=== PATIENT | male | born 1985 | race Two or more races ===

== ENCOUNTER 2024-12-28 20:28 | Emergency (ER) | payer MEDICAID, SELFPAY ==
[2024-12-28 20:31] VITALS: BP 162/80; PULSE 111; RESP 18; TEMP 36.6; O2SAT 99; BMI 33.9
--- NOTE | 2024-12-28 23:00 | XR_ITS ---
Examination: CT maxillofacial, without intravenous contrast. 2-D sagittal reconstructions. 3-D reconstructions. Date and time of exam:December 29, 2024, 0113 hours INDICATIONS: Injury to the face today, nose pain CTDI: vol (mGy):25.5 DLP: (mGycm):550 Technique: Multiple axial images of maxillofacial region, 3.0 mm slice thickness. 2-D sagittal and coronal reconstructions. 3-D reconstructions. Low dose protocols were performed. One or more of the following dose reduction techniques were used; automated exposure control, adjustment of the mA and/or KV according to patient size, use of iterative reconstruction technique. Findings: Frontal bones intact Orbit rims intact. Mildly displaced right nasal bone fracture image 81 No depression zygomatic arches. Maxilla and the mandible is intact IMPRESSION: Right nasal bone fracture.
--- NOTE | 2024-12-28 23:01 | EDNOTE_ITS ---
ED Head Injury RME/HPI General Chief complaint: Head Injury Stated complaint: NOSE INJURY Time Seen by Provider: 12/28/24 21:48 Arrival date/time: 12/28/24 20:28 RME / HPI RME / HPI Narrative: 39-year-old male presents to the ED with a complaint of nose pain and injury secondary to an injury he sustained at home at about 6 PM tonight when a ladder that was up against the building fell onto him landing on his face and nose. He had a bloody nose afterwards. Related Data Previous Rx's ?Medication ?Instructions ?Recorded amoxicillin 875 mg-potassium 1 tab PO BID Nasal bone f racture 12/29/24 clavulanate 125 mg tablet with possible intranasal lac 7 days #14 tabs meloxicam 15 mg tablet 15 mg PO QDAY PRN pain #10 t abs 12/29/24 Allergies Allergy/AdvReac Type Severity Reaction Status Date / Time No Known Allergies Allergy Verified 12/28/24 20:36 Review of Systems Review of Systems Systems Reviewed: All systems reviewed, normal except as documented Past Medical History Social History SMOKING STATUS: Current some day smoker ED Exam Narrative Physical exam: A&O, afebrile and non-toxic appearing 39-year-old male with obvious nasal deformity, swelling and evidence of recent epistaxis. No acute distress. Pupils are PERRL, EOMs intact. No nystagmus noted. Cranial nerves II through XII are grossly intact. TMs are without erythema, right nares patent, left nares obscured with deformity and severe edema. Pharynx without erythema. No tenderness to the bilateral orbits. Positive nasal bridge tenderness as well as tenderness to the cartilage area. No current bleeding is noted. Lung are clear, RRR, Abdomen is non-distended. Moves all extremities well. Course Course Course Narrative: Patient was given hydrocodone 7.[address] facial bones reveals acute minimally displaced fracture of the right nasal bone/right frontal process of the maxilla with adjacent soft tissue swelling. Maxillary sinus and orbital sprague are intact. No evidence of intraorbital hematoma, globe injury or radiodense foreign body. Zygomatic arches and mandible are intact. Quality Measures none Orders Category Date Time Status CT facial bones wo con Stat Exams 12/28/24 23:00 Taken HYDROcodone*/APAP 7.5/325 [[place] 7.5/325] Med 12/28/24 23:00 Discontinued 1 tab PO X1 ONE Head Injury MDM Narrative MDM Narrative:: Symptoms, exam and diagnostic studies are consistent with: Nasal bone fracture with displacement and soft tissue swelling. Patient was discharged home in stable condition. Patient/family advised to follow-up with their PCP in 24-48 hours. Encouraged to return to the ED for any new or worsening symptoms. Patient data External records reviewed:: None Clinical information provided by:: patient and family Social determinants that could affect healthcare access:: none Patient has the following chronic illnesses:: N/A How is presenting disease/condition affected by chronic disease/condition?: no chronic disease Evaluation data The following diagnostics were reviewed and interpreted by me:: radiology exam(s) Lab and/or radiology exams considered but not ordered:: N/A Interpretation Summary: As noted above Medications / Prescriptions Medications or Prescriptions considered but not ordered:: N/A Medication administrations:: Medication Administration History Discontinued Medications Hydrocodone Bitart/Acetaminophen (Hydrocodone/Apap 7.5/325 Tablet) 1 tab PO X1 ONE Stop: 12/28/24 23:01 Last Admin: 12/28/24 23:25 Dose: 1 tab Documented By: EE As noted above, as well as Toradol 30 mg IM. Consultations Consultation(s) initiated? (list below): Yes Consultation #1 (Physician, Specialty, Details): Discussed case with Dr. Mejía. Advised to follow-up with PCP for referral to oral maxillofacial surgeon. Diagnosis Differential diagnosis head injury: concussion without loss of consciousness, closed head injury and other (Nasal bone fracture, facial contusion) Most likely diagnosis given after review of the tests above:: Facial contusion with nasal bone fracture Admission Indicated Admission indicated?: not indicated Explain why admission is indicated or not indicated:: Patient is stable for discharge Admission Request Was there a request for admission?: No Admission Attestation Admission request attestation: N/A Disposition Plan Disposition Plan: Discharge Discharge Attestation Discharge Attestation: The patient and all family members were given an opportunity to ask questions and understood the discharge instructions. Discharge instructions specifically effects, indications for sooner follow up or return to the emergency department, and the expected course of current diagnosis. Patient condition: Stable Discharge Plan Plan Patient Disposition: HOME (Self Care) Discharge Disposition comment: Stable Prescriptions/Referrals Prescriptions/Med Rec: New meloxicam 15 mg tablet 15 mg PO QDAY PRN (Reason: pain) Qty: 10 0RF Rx Instructions: Begin taking this medication on Saturday night, if needed. amoxicillin-pot clavulanate 875-125 mg tablet 1 tab PO BID 7 Days Qty: 14 0RF Referrals: No Primary/Family,Physician [Primary Care Provider] - In 1 week Problem List Clinical Impression: Fracture of nasal bones Patient/Caregiver Discharge Instructions Education Materials: ED Nose Fracture, with X-Ray Additional Instructions: [place] los antibioticos [place] lo prescrito y complete elcurso a pesar de que puede sentirse major. [place] un seguimiento con redd medico de atencion primaria en 24 a 48 horas. Regresar al departamento de emergencias por cualquier sintoma nuevo o que empeore. Print Language: [employer] Stand Alone Forms: [place] Award Info., Patient Portal Info Letter PA/PROCESS MACHINE OPERATOR Supervising Physician PA/PROCESS MACHINE OPERATOR Supervising Physician: Dr Mejía
[2024-12-28] MEDS: HYDROcodone/APAP 7.5/325 TABLET 1 TAB PO (23:25)
--- NOTE | 2024-12-29 02:01 | PRELIM_ITS ---
CT maxillofacial without intravenous contrast (axial sections with sagittal and coronal reformats). December 29, 2024 0113 hours Clinical History: Trauma, facial injuries No prior study is available for comparison. Findings: There is an acute minimally displaced fracture of the right nasal bone/right frontal process of maxilla with adjacent soft tissue laceration. Age indeterminate nondisplaced fracture of the left nasal bone. The maxillary sinus and orbital sprague are intact. There is mild to moderate mucosal thickening in the bilateral maxillary sinuses. No evidence of intraorbital hematoma, globe injury or radiodense foreign body. The zygomatic arches and mandible are intact. The visualized soft tissues are unremarkable. Impression: Acute minimally displaced fracture of the right nasal bone/right frontal process of maxilla with adjacent soft tissue laceration. Other findings as described above. Report Electronically Signed By: Valente Savage 12/29/2024 2:00:59 AM [EST]
== END 2024-12-29 03:45 | disposition home or self-care (01) ==
PROVIDERS: Emergency Provider Emergency Medicine
DX: S02.2XXA Fracture of nasal bones, initial encounter for closed fracture (principal); W20.8XXA Other cause of strike by thrown, projected or falling object, initial encounter; Y92.009 Unspecified place in unspecified non-institutional (private) residence as the place of occurrence of the external cause
CPT/HCPCS: 70486; 99283; A9270